=== PATIENT | male | born 1995 | race African-American/Black ===

== ENCOUNTER 2022-09-15 22:01 | Emergency (ER) | payer OTHER ==
[~2022-09-15] VITALS: Ht 177.8 cm; Wt 68.2 kg
[2022-09-15] MEDS ORDERED: CLON0.1T2 PO (22:11)
[2022-09-15 22:16] VITALS: BP 117/73
[2022-09-15] MEDS ORDERED: LIDOCAINE 1% 10 ML VIAL SQ ONE (23:15)
[2022-09-16] MEDS ORDERED: BACITRACIN 0.9 GM PACKET OINTMENT TP ONE
== END 2022-09-16 00:04 | disposition home or self-care (01) ==
LOC: EMS 22:04
DX: S01.81XA Laceration without foreign body of other part of head, initial encounter (principal); F84.0 Autistic disorder; W25.XXXA Contact with sharp glass, initial encounter; Y93.89 Activity, other specified; Y92.89 Other specified places as the place of occurrence of the external cause; Y99.8 Other external cause status
CPT/HCPCS: 99282; 12013; J3490

== ENCOUNTER 2022-09-21 14:05 | Emergency (ER) | payer OTHER ==
[~2022-09-21] VITALS: Ht 177.8 cm; Wt 68.2 kg
[~2022-09-21 14:05] MED LIST: CLON0.1T2 PO
[2022-09-21 16:49] VITALS: BP 125/74
[2022-09-21] MEDS ORDERED: CLON-441 PO (16:52)
== END 2022-09-21 16:50 | disposition home or self-care (01) ==
LOC: EMS 14:26
DX: S01.81XD Laceration without foreign body of other part of head, subsequent encounter (principal); F84.0 Autistic disorder; Z48.02 Encounter for removal of sutures; X58.XXXD Exposure to other specified factors, subsequent encounter
CPT/HCPCS: 99281; Z7502